=== PATIENT | female | born 1980 | race Caucasian/White ===

== ENCOUNTER 2018-10-30 10:45 | Outpatient (CLI) | payer OTHER | END 2018-10-30 10:46 | disposition home or self-care (01) | LOC: DTY/OP 10:45 | PROVIDERS: ATTEND Surgery | DX: Z48.815 Encounter for surgical aftercare following surgery on the digestive system (principal); Z98.84 Bariatric surgery status | CPT/HCPCS: 97802 ==

== ENCOUNTER 2019-02-19 11:15 | Inpatient (IN) | payer MEDICARE ==
[2019-02-19 11:58] VITALS: BMI 43.0
[2019-02-26] MEDS ORDERED: ceFAZolin Sodium (SDC) 2 GM/100 ML BAG ONE (07:11)
[2019-02-26] MEDS ORDERED: Heparin 5,000 UNITS/ML VIAL ONE (07:11)
[2019-02-26] MEDS ORDERED: Midazolam HCl 2 mg/2 ml Vial ONE (09:14)
[2019-02-26] MEDS ORDERED: Bupivacaine/Epinephrine 0.25% 30 ML VIAL ONE (09:17)
[2019-02-26] MEDS ORDERED: Fentanyl 100 MCG/2 ML VIAL ONE ×3 (09:36→11:38)
[2019-02-26] MEDS ORDERED: Dextrose 5% in Water 1,000 ML IV PRN (11:06)
[2019-02-26] MEDS ORDERED: diphenhydrAMINE 50 MG/ML VIAL IVP PRN ×2 (11:06→11:20)
[2019-02-26] MEDS ORDERED: Hydrocodone-Acetamin 15 ML UDCUP PO PRN (11:06)
[2019-02-26] MEDS ORDERED: Dextrose 50% Abboject 50 ML SYRINGE SLOW IVP PRN (11:06)
[2019-02-26] MEDS ORDERED: Ondansetron PF 4 MG/2 ML Vial IVP PRN (11:06)
[2019-02-26] MEDS ORDERED: hydrALAZINE 20 MG/ML VIAL SLOW IVP PRN (11:06)
[2019-02-26] MEDS ORDERED: Promethazine HCl 25 MG/ML VIAL IM PRN ×2 (11:06→11:20)
[2019-02-26] MEDS ORDERED: Naloxone HCl 0.4 mg/ml Vial IV PRN (11:20)
[2019-02-26] MEDS ORDERED: fentaNYL Citrate/PF 2,000 MCG in Sodium Chloride 0.9% 60 ML IV PRN (11:20)
[2019-02-26] MEDS ORDERED: diphenhydrAMINE 50 MG/ML VIAL IM PRN (11:20)
[2019-02-26] MEDS ORDERED: diphenhydrAMINE 25 MG CAP PO PRN (11:20)
[2019-02-26] MEDS ORDERED: Zolpidem Tartrate 5 MG TAB PO PRN (11:20)
[2019-02-26] MEDS ORDERED: Promethazine HCl 25 MG/ML VIAL ONE (11:21)
[2019-02-26] MEDS ORDERED: Communication Order-Pharmacy FS SCH (11:30)
[2019-02-26] MEDS ORDERED: CEFAZOLIN 2 GM, IV Admixture Fee-Chemo 1 UNITS in Sodium Chloride 0.9% 100 ML IVPB SCH (12:00)
[2019-02-26] MEDS: Ketorolac Tromethamine 30 MG/ML VIAL IVP SCH ×3 (12:48→22:58)
[2019-02-26] MEDS: D5 1/2 NS w/20 mEq KCL 1,000 ML IV SCH ×2 (15:06→23:03)
--- NOTE | 2019-02-26 15:52 | OP ---
DATE OF PROCEDURE: 02/26/2019 PREOPERATIVE DIAGNOSIS: Morbid obesity. PROCEDURE PERFORMED: Laparoscopic sleeve gastrectomy with intraoperative esophagogastroscopy. INDICATIONS: A 38-year-old female, morbidly obese, who has attempted multiple weight loss programs without success. FINDINGS: A 38-[place]i bougie used. DESCRIPTION OF PROCEDURE: After informed consent was obtained, the patient was taken to the operating room, given general endotracheal anesthesia, placed in the supine position. The abdomen was prepped and draped in usual fashion. Local anesthesia was infiltrated subcutaneously and deep. A 12-mm incision was performed approximately 8 inches below the xiphoid slightly to the left. A Veress needle was inserted. Drop test was performed. Pneumoperitoneum was created to a volume of 2 L of carbon dioxide. Utilizing a bladeless 12 mm trocar and 0-degree laparoscope, direct visual entry into the abdominal cavity was performed. Pneumoperitoneum was then created to a pressure of 15 mmHg. The patient was placed in steep reverse Trendelenburg position. Robert liver retractor was inserted. Left lobe of the liver retracted superiorly. The pylorus was identified. A 12 mm port was placed on the right, beneath it two 12s were placed on the left subcostal. The omentum was taken off the greater curvature 5 cm from the pylorus utilizing the LigaSure. Short gastrics were divided with LigaSure. Left crura defined with LigaSure. A 38-Israeli bougie was inserted, directed into the antrum. The linear 60 mm green load stapler used to divide the antrum to the bougie, gold load along the bougie, and a series of blues through the angle of His. Intraoperative endoscopy was then performed. The video endoscope inserted under direct vision and advanced into the sleeve. Staple line was inspected. There was no bleeding. Staple line then tested by inflating the new stomach with pressurized air under water. There was no air leak. Stomach was decompressed. Scope was removed. The remnant stomach was removed from the abdomen through the left lateral incision. The fascia was closed with 0 Vicryl suture and the GraNee needle. Trocars and retractors were removed. Skin was closed with interrupted 4-0 Rapide. Dermabond applied. The patient tolerated the procedure well, transferred to Recovery in good condition. Sponge and needle count verified correct x2. Job ID: [id number]
[2019-02-26] MEDS ORDERED: Glycopyrrolate 0.2 MG/ML 5 ML SYRINGE ONE (17:03)
[2019-02-26] MEDS ORDERED: Ketorolac Tromethamine 30 MG/ML VIAL ONE (17:03)
[2019-02-26] MEDS ORDERED: Lidocaine 1% PF 5 ML VIAL ONE (17:03)
[2019-02-26] MEDS ORDERED: Ondansetron PF 4 MG/2 ML Vial ONE (17:03)
[2019-02-26] MEDS ORDERED: PROPOFOL 200 MG/20 ML VIAL ONE (17:03)
[2019-02-26] MEDS ORDERED: Rocuronium Bromide 10 MG/ML (10ML VIAL) ONE (17:03)
[2019-02-26] MEDS: CEFAZOLIN 2 GM, IV Admixture Fee-Chemo 1 UNITS in Sodium Chloride 0.9% 100 ML IVPB SCH (17:26)
[2019-02-26] MEDS: Ondansetron PF 4 MG/2 ML Vial IVP PRN ×2 (18:21→23:08)
[2019-02-27] MEDS: CEFAZOLIN 2 GM, IV Admixture Fee-Chemo 1 UNITS in Sodium Chloride 0.9% 100 ML IVPB SCH (01:09)
[2019-02-27 05:08] LABS: #Basophils 0.1 thou/uL (0.0-0.2); #Eosinphils 0.2 thou/uL (0.0-0.7); #Monocytes 0.5 thou/uL (0.11-0.59); #Neutrophils 4.1 thou/uL (1.40-6.50); %Basophils 1.1 % (0.0-1.0); %Eosinophils 2.9 % (0.0-10.0); %Lymphocytes 28.8 % (21.0-51.0); %Monocytes 7.7 % (0.0-10.0); %Neutrophils 59.5 % (42.0-75.0); Hemoglobin 12.1 g/dL (12.0-16.0); Mean Corpuscular HGB CONC 32.8 g/dL (32.0-36.0); Mean Corpuscular Hemoglobin 29.6 pg (27.0-31.0); Mean Platelet Volume 6.9 fL (7.4-10.4); Platelet Count 378 thou/uL (130-400); RBC Distribution Width 11.9 % (11.5-14.5); Red Blood Cell (RBC) Count 4.09 mill/uL (4.20-5.40)
[2019-02-27] MEDS: Ketorolac Tromethamine 30 MG/ML VIAL IVP SCH ×3 (05:24→18:09)
[2019-02-27 05:26] LABS: Anion Gap 10 mmol/L (10-20); BUN (Urea Nitrogen) 8 mg/dL (7.0-18.7); Calc. Creatinine Clearance 235 mL/min (70-130); Calcium 8.6 mg/dL (7.8-10.44); Carbon Dioxide 28 mmol/L (22-29); Chloride 105 mmol/L (98-107); Estimated GFR-MDRD Greater than 90; Glucose 103 mg/dL (70-105); Potassium 3.7 mmol/L (3.5-5.1); Sodium 139 mmol/L (136-145)
[2019-02-27] MEDS: D5 1/2 NS w/20 mEq KCL 1,000 ML IV SCH ×3 (05:26→20:56)
--- NOTE | 2019-02-27 07:12 | PDOC.GSPN ---
Surgery Progress Note: Subj - Subjective Narrative: Pt. states that she is doing relatively better and that her pain has improved as well. Still reports appropriate abdominal pain that is greater on the left side of the abdomen. Has experienced mild nausea after eating ice chips last night and denies any reflux. Surgery Progress Note: Obj - Vital signs Vital signs: Vital Signs - Most Recent Temp Pulse Resp BP Pulse Ox 98.5 F 91 16 114/75 95 02/27/19 04:00 02/27/19 04:00 02/27/19 04:00 02/27/19 04:00 02/27/19 04:00 - Physical Exam Cardiovascular: regular rate and rhythm Respiratory: clear to auscultation, normal expansion, normal respiratory effort Abdomen: soft, positive bowel sounds, appropriately tender Wound: healing well Surgery Progress Note: Results - Labs Result Diagrams: 02/27/19 04:51 02/27/19 04:51 Lab results: Laboratory Results - last 24 hr 02/27/19 02/27/19 04:51 04:51 WBC 7.0 RBC 4.09 L Hgb 12.1 Hct 36.8 MCV 90.0 MCH 29.6 MCHC 32.8 RDW 11.9 Plt Count 378 MPV 6.9 L Neutrophils % 59.5 Lymphocytes % 28.8 Monocytes % 7.7 Eosinophils % 2.9 Basophils % 1.1 H Neutrophils # 4.1 Lymphocytes # 2.0 Monocytes # 0.5 Eosinophils # 0.2 Basophils # 0.1 Sodium 139 Potassium 3.7 Chloride 105 Carbon Dioxide 28 Anion Gap 10 BUN 8 Creatinine 0.69 Estimated GFR (MDRD) Greater than 90 Glucose 103 Calcium 8.6 Surgery Progress Note: A/P - Problem (1) Status post gastrectomy Current Visit: Yes Status: Acute Assessment and Plan: Swallow study to be conducted this morning. Continue to control pain and nausea. Diet advancement should go through Dr. Finnegan
[2019-02-27] MEDS: Enoxaparin Sodium 40 MG/0.4 ML SYRINGE SC SCH (08:07)
[2019-02-27] MEDS: Pantoprazole 40 MG VIAL IVP SCH (08:07)
--- NOTE | 2019-02-27 10:09 | RAD ---
UPPER GI: HISTORY: Status post vertical sleeve, gastric bypass surgery. TECHNIQUE: The patient swallowed 15 mL of Gastrografin. EXPOSURE: 1.4 minutes 1388.5 mGy per m2. FINDINGS: There is delay in passage of Gastrografin from the esophagus into the stomach. The Gastrografin that does pass into the stomach does not demonstrate any leak or extravasation. Contrast does opacify th e proximal small bowel loops. Dorsal column stimulator is noted. There is also evidence of posterio r fusion hardware involving the distal lumbar spine and sacrum. There is perihardware lucency and fr acture involving the right S1 screw. IMPRESSION: Delay in passage of Gastrografin from the esophagus into the residual stomach. POS: OFF
[2019-02-27] MEDS: Ondansetron PF 4 MG/2 ML Vial IVP PRN ×2 (10:31→15:40)
[2019-02-27] MEDS: Hydrocodone-Acetamin 15 ML UDCUP PO PRN ×2 (15:36→21:17)
[2019-02-28] MEDS: Ondansetron PF 4 MG/2 ML Vial IVP PRN (00:24)
[2019-02-28] MEDS: D5 1/2 NS w/20 mEq KCL 1,000 ML IV SCH (00:49)
[2019-02-28] MEDS: Ketorolac Tromethamine 30 MG/ML VIAL IVP SCH ×2 (00:49→06:56)
[2019-02-28] MEDS: Hydrocodone-Acetamin 15 ML UDCUP PO PRN (07:37)
[2019-02-28] MEDS: Enoxaparin Sodium 40 MG/0.4 ML SYRINGE SC SCH (08:40)
[2019-02-28] MEDS: Pantoprazole 40 MG VIAL IVP SCH (08:42)
[2019-02-28] MEDS ORDERED: GASTROGRAFIN 30 ML BOT ONE (10:11)
[2019-02-28 10:58] VITALS: BP 98/72; TEMP 98.2
--- NOTE | 2019-02-28 12:36 | DIS ---
DATE OF ADMISSION: 02/26/2019 DATE OF DISCHARGE: 02/28/2019 DISCHARGE DIAGNOSIS: Morbid obesity. PROCEDURE DURING ADMISSION: Laparoscopic sleeve gastrectomy. HOSPITAL COURSE: The patient was admitted, taken to the operating room, where she underwent sleeve gastrectomy. Postoperatively, she had a swallow study, which showed slow transit into the stomach, so she was not quite able to tolerate enough liquids to go home. She has spent another night. She is doing a lot better now. She is able to tolerate liquids. Pain is controlled on p.o. medications. She is discharged home on hydrocodone and Zofran. She will follow up with me in 2 weeks. Job ID: [id number]
== END 2019-02-28 12:25 | disposition home or self-care (01) | DRG 621 ==
LOC: SURG A 02-26 06:41
PROVIDERS: ADMIT Surgery; ATTEND Surgery
PROC: 0DB64Z3 Excision of Stomach, Percutaneous Endoscopic Approach, Vertical (ICD-10-PCS; principal; 2019-02-26)
DX: E66.01 Morbid (severe) obesity due to excess calories (principal); G57.93 Unspecified mononeuropathy of bilateral lower limbs; F41.9 Anxiety disorder, unspecified; Z68.43 Body mass index [BMI] 50.0-59.9, adult; Z87.891 Personal history of nicotine dependence
CPT/HCPCS: 36415; 36416; 74241; 80048; 85025; 88307; 88312; 94760; C9113; J0131; J0690; J1644; J1650; J1885; J2001; J2250; J2405; J2550; J2704; J3010; J3490; Q9963

== ENCOUNTER 2019-02-19 11:24 | Outpatient (CLI) | payer MEDICARE ==
[2019-02-19 13:05] LABS: #Basophils 0.1 thou/uL (0.0-0.2); #Eosinphils 0.5 thou/uL (0.0-0.7); #Lymphocytes 2.3 thou/uL (1.20-3.40); #Monocytes 0.5 thou/uL (0.11-0.59); #Neutrophils 4.5 thou/uL (1.40-6.50); %Basophils 1.2 % (0.0-1.0); %Eosinophils 6.1 % (0.0-10.0); %Lymphocytes 29.1 % (21.0-51.0); %Monocytes 6.3 % (0.0-10.0); %Neutrophils 57.4 % (42.0-75.0); Mean Corpuscular HGB CONC 31.2 g/dL (32.0-36.0); Mean Corpuscular Hemoglobin 27.9 pg (27.0-31.0); Mean Corpuscular Volume 89.5 fL (78.0-98.0); Mean Platelet Volume 7.3 fL (7.4-10.4); Platelet Count 349 thou/uL (130-400); RBC Distribution Width 12.2 % (11.5-14.5); Red Blood Cell (RBC) Count 5.01 mill/uL (4.20-5.40); White Blood Cell (WBC) Count 7.8 thou/uL (4.8-10.8)
[2019-02-19 13:29] LABS: ALT (SGPT) 15 U/L (8-55); AST (SGOT) 16 U/L (5-34); Albumin 4.1 g/dL (3.5-5.0); Alkaline Phosphatase 78 U/L (40-150); Anion Gap 12 mmol/L (10-20); BUN (Urea Nitrogen) 9 mg/dL (7.0-18.7); Bilirubin, Direct 0.1 mg/dL (0.1-0.3); Bilirubin, Total 0.2 mg/dL (0.2-1.2); Calc. Creatinine Clearance 0 mL/min (70-130); Calcium 9.1 mg/dL (7.8-10.44); Carbon Dioxide 21 mmol/L (22-29); Chloride 108 mmol/L (98-107); Estimated GFR-MDRD 89; Globulin 2.6 g/dL (2.4-3.5); Glucose 101 mg/dL (70-105); Potassium 4.1 mmol/L (3.5-5.1); Protein, Total 6.7 g/dL (6.0-8.3); Sodium 137 mmol/L (136-145)
--- NOTE | 2019-02-19 14:42 | RAD ---
2 views of the chest: 02/19/2019 COMPARISON: None HISTORY: Preoperative patient FINDINGS: Dorsal column stimulators overlie the mid thoracic spine. No pneumothorax or pleural fluid is seen. There is no focal consolidation or alveolar edema IMPRESSION: No acute findings.
[2019-02-19 15:48] LABS: BHCG - Serum Negative (NEGATIVE); Pregs Control Background? CLEAR/WHITE (CLR/WHITE); Pregs Control Bar Appear? YES (CONTROL BAR)
== END 2019-02-19 11:25 | disposition home or self-care (01) ==
LOC: LABBT 11:24
PROVIDERS: ATTEND Surgery
DX: Z01.818 Encounter for other preprocedural examination (principal); G62.9 Polyneuropathy, unspecified; M12.9 Arthropathy, unspecified; Z68.43 Body mass index [BMI] 50.0-59.9, adult
CPT/HCPCS: 71046; 80053; 80076; 83036; 84703; 85025; 93005; 93010